=== PATIENT | male | born 1965 | race Caucasian/White ===

== ENCOUNTER 2017-07-11 08:39 | Day surgery (SDC) | payer BC ==
[~2017-07-11 08:39] MED LIST: CEFAZOLIN 2 Gram 2 GM/50 ML BAG IVPB ONE; ENOXAPARIN 40 MG/0.4 ML SYR SQ ONE
[2017-07-11] MEDS ORDERED: FENTANYL PF 100MCG/2ML VIAL IV ONE (08:40)
[2017-07-11] MEDS ORDERED: LIDOCAINE 2% MDV (20MG/ML) 20ML VIAL IV ONE (08:40)
[2017-07-11] MEDS ORDERED: SEVOFLURANE 250 ML INH ONE (08:40)
[2017-07-11] MEDS ORDERED: KETOROLAC 30 MG/ML VIAL IVP ONE (08:40)
[2017-07-11] MEDS ORDERED: ACETAMINOPHEN 1,000 MG/100 ML BTL IV ONE (08:40)
[2017-07-11] MEDS ORDERED: TRAMADOL HCL 50 MG TABLET PO ONE (08:40)
[2017-07-11] MEDS ORDERED: BUPIVACAINE 0.75% W/EPI MPF 30ML VIAL IVP ONE (08:40)
[2017-07-11] MEDS ORDERED: MIDAZOLAM HCL 2MG/2ML VIAL IV ONE (08:40)
[2017-07-11] MEDS ORDERED: PROPOFOL 10 MG/ML VIAL IV ONE (08:40)
--- NOTE | 2017-07-11 20:30 | Operative Note ---
DATE: 07/11/2017 PREOPERATIVE DIAGNOSIS: INTERNAL DERANGEMENT RIGHT KNEE. POSTOPERATIVE DIAGNOSES: 1. PROFOUND FAT PAD IMPINGEMENT RIGHT KNEE. 2. MODERATE SYNOVITIS OF THE POUCH. PROCEDURE: RIGHT KNEE ARTHROSCOPY WITH PARTIAL SYNOVECTOMY AND INTERARTICULAR DEBRIDEMENT. STAFF SURGEON: BIRGIT SARAVIA M.D. ANESTHESIA: GENERAL. PREPARATION: CHLORAPREP. INDIVIDUAL CONSIDERATIONS: NONE. PROCEDURE: The patient was taken to the Operating Room and placed supine on the operating table. He had a successful induction with general anesthetic. His right lower extremity was prepped and draped in the usual fashion. Examination under anesthesia showed normal ligaments. The patient had a superior lateral inflow cannula placed. The skin was infiltrated with 0.75% Marcaine with Epinephrine prior. A clear effusion was drained. The knee was inflated with normal saline. An inferior medial and an inferior lateral portal were made in a similar fashion. The arthroscope was introduced through the inferior lateral portal up into the pouch. The patellofemoral joint was basically normal but I basically could hardly even get into the joint. There was a huge fat pad preventing me to actually see anything. Prior to actually able to be seeing anything, I had to debride the fat pad area. Once I did that, I could see the patellofemoral compartment, which looked normal. In the pouch,, there was moderate synovitis, which was debrided, not so much in the gutters. Once I debrided out the fat pad and plica, I could see into the medial compartment, which actually looked normal except for a very small area of grade 3 change just lateral to the midline centered at about 45 degrees of flexion looking about the size of an elongated nickel but, again, this was just lateral to the weightbearing area. The meniscus was intact. Cruciates were normal. Lateral compartment structures were normal. The knee was then irrigated out with saline to remove loose floating debris. Portals were closed with lukas and 20 mL of 0.25% plain Marcaine along with 40 mg of DepoMedrol were injected into the knee and a sterile Bulkee compressive dressing was applied. The patient tolerated the procedure well. Needle and sponge counts were correct. Estimated blood loss was minimal and he was taken back to Recovery in good condition. There were no complications. JOB NUMBER: [id number] MTDD
== END 2017-07-11 12:17 | disposition home or self-care (01) ==
LOC: SUR 08:39
PROVIDERS: ATTEND Orthopaedic Surgery
DX: M79.4 Hypertrophy of (infrapatellar) fat pad (principal); Z87.891 Personal history of nicotine dependence
CPT/HCPCS: J1650; J1885; J3490